=== PATIENT | male | born 1945 | race Caucasian/White ===

== ENCOUNTER 2016-07-04 07:59 | Day surgery (SDC) | payer MEDICARE, OTHER ==
[2016-06-30 14:20] LABS: BASOPHILS 0.3 %; BASOPHILS ABSOLUTE 0.02 10/3/uL (0.0-0.16); EOSINOPHILS 3.6 %; EOSINOPHILS ABSOLUTE 0.22 10/3/uL (0.0-0.53); HEMATOCRIT 41.3 % (40.0-51.0); HEMOGLOBIN 13.6 g/dL (13.6-17.8); IMMATURE GRANULOCYTES 0.2 %; IMMATURE GRANULOCYTES ABSOLUTE 0.01 10/3/uL (0.0-0.11); LYMPHOCYTES 20.1 %; LYMPHOCYTES ABSOLUTE 1.23 10/3/uL (0.67-4.30); MEAN CORPUS HGB CONC 32.9 g/dL (32.0-36.0); MEAN CORPUSCULAR HEMOGLOB 29.4 pg (26.0-34.0); MEAN CORPUSCULAR VOLUME 89.2 fL (80-100); MEAN PLATELET VOLUME 9.8 fL (9.2-13.0); MONOCYTES 6.7 %; MONOCYTES ABSOLUTE 0.41 10/3/uL (0.21-1.20); NEUTROPHILS 69.1 %; NEUTROPHILS ABSOLUTE 4.22 10/3/uL (2.02-8.40); PLATELET COUNT 169 10/3/uL (150-400); RBC DISTRIBUTION WIDTH 14.1 % (12.0-16.0); RED CELL COUNT 4.63 10/6/uL (4.7-6.1); WHITE BLOOD CELLS 6.1 10/3/uL (4.5-10.5)
[2016-06-30 14:21] LABS: MANUAL DIFF NO %
[2016-06-30 14:36] LABS: BUN (BLOOD UREA NITROGEN) 26 MG/DL (6-23); CALCIUM, SERUM 8.8 MG/DL (8.5-10.4); CHLORIDE, SERUM 107 MMOL/L (96-112); CO2 (CARBON DIOXIDE) 30 MMOL/L (24-34); CREATININE 1.03 MG/DL (0.70-1.30); GFR AFRICAN AMERICAN 85 ML/MIN (>=60); GFR NON AFRICAN AMERICAN 73 ML/MIN (>=60); GLUCOSE, SERUM 220 MG/DL (60-99); POTASSIUM, SERUM 4.2 MMOL/L (3.5-5.3); SODIUM, SERUM 147 MMOL/L (135-148)
[2016-06-30 16:40] LABS: ASCORBIC ACID (UR NOT ORDER) NEG (NEG); BILIRUBIN, URINE NEGATIVE (NEG); KETONE, URINE NEGATIVE (NEG); LEUKOCYTE ESTERASE(NOT OR NEG (NEG); WBC (NOT ORDERED) (RFLEX) 2 (0-5)
--- NOTE | ~2016-07-04 | OP ---
Record Of Operation [facility] [address] [place]. [address] NAME: DARLENE OSMAN : 47 STATUS : REG [facility] [place] PAT#: [id number] AGE: 71 ADM/REG DATE : 07/04/16 MR#: [id number] REPORT SERV DATE: 07/04/16 DICTATED BY: ART ARANDA DATE: 07/04/16 REPORT STATUS : Draft TRANSCRIBED BY: MODL DATE: 07/04/16 DATE OF PROCEDURE: 07/04/2016 PREOPERATIVE DIAGNOSES: Bladder tumor (less than 1 cm) and history of bladder cancer. POSTOPERATIVE DIAGNOSES: Bladder tumor (less than 1 cm) and history of bladder cancer. PROCEDURE: Cystoscopy, bladder biopsy with fulguration, bilateral retrograde pyelogram. SURGEON: Art Aranda M.D. ANESTHESIA: General. ESTIMATED BLOOD LOSS: 5 mL. FLUID REPLACEMENT: None. DRAINS: None. 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 TECHNIQUE: The patient was identified and brought to the operating room, administered general anesthetic agent by the Anesthesia Service and intubated. He was maintained with laryngeal mask airway. He was positioned in dorsal lithotomy position. The penis, groin, and scrotum were prepped and draped in the usual sterile fashion. A 22-Qatari cystoscopic sheath with 30-degree lens was used for cystourethroscopy. The anterior bulbus urethra was normal. The prostatic urethra was hypertrophied. Bladder was entered and drained urine, and refilled with sterile glycine. The left ureteral orifice has been resected and was patent. The right ureteral orifice was normal. On the posterior wall of the bladder, approximately two-thirds way up just to the left of midline is a small papillary tumor. There was adjacent to that on the midline posterior wall with some hyperemia and erythema. I did bilateral retrograde pyelograms. They were normal. I then biopsied the two areas in the bladder. I cauterized the base of each. I drained the bladder and terminated the procedure. PF/CARRIE Art Aranda M.D. / [id number] Record Of [address] [address] NAME: DARLENE OSMAN : 47 STATUS : REG [facility] [place] PAT#: [id number] AGE: 71 ADM/REG DATE : 07/04/16 MR#: [id number] REPORT SERV DATE: 07/04/16 DICTATED BY: ART ARANDA DATE: 07/04/16 REPORT STATUS : Draft TRANSCRIBED BY: MODL DATE: 07/04/16 CC: Carl Langford STEPHAN
[~2016-07-04 07:59] MED LIST: BRIMONIDINE0.2 %; COREG12 PO; COREG25 PO; COUMADIN3 MG PO; COUMADIN7.5 MG PO; CRESTOR10 PO; GLUCOTROL5 PO; GLUCPH8 PO; HYDROCHLOROT12.5 MG PO; LOTE20 PO; LOVENOX; NORV5 PO; PLAVIX PO; TIMOLOL MAL0.25 % OPH
[2016-07-04 08:25] LABS: INTERNATIONAL NORMAL RATI 1.1 UNITS (-); PROTIME (NOT ORD) 13.8 SEC (12.0-14.5)
== END 2016-07-04 15:07 | disposition home or self-care (01) ==
LOC: SDC 07:59
PROVIDERS: Urology
PROC: 0TBB8ZX Excision of Bladder, Via Natural or Artificial Opening Endoscopic, Diagnostic (ICD-10-PCS; 2016-07-04)
PROC: BT14ZZZ Fluoroscopy of Kidneys, Ureters and Bladder (ICD-10-PCS; 2016-07-04)
PROC: 0TBB8ZX Excision of Bladder, Via Natural or Artificial Opening Endoscopic, Diagnostic (ICD-10-PCS; principal; 2016-07-04 10:30)
DX: N30.20 Other chronic cystitis without hematuria (principal); I25.10 Atherosclerotic heart disease of native coronary artery without angina pectoris; I10 Essential (primary) hypertension; E11.9 Type 2 diabetes mellitus without complications; I82.409 Acute embolism and thrombosis of unspecified deep veins of unspecified lower extremity; Z98.890 Other specified postprocedural states; Z79.899 Other long term (current) drug therapy; Z79.01 Long term (current) use of anticoagulants
CPT/HCPCS: 74420; 80048; 81001; 82962; 85025; 85610; 88305; 93005; C1758; J2250; J2405; J3010; Q9967